=== PATIENT | female | born 1950 | race Caucasian/White ===

== ENCOUNTER 2021-10-15 15:16 | Emergency (ER) | payer OTHER ==
[~2021-10-15] VITALS: Ht 167.6 cm; Wt 92.5 kg
[2021-10-15 15:16] VITALS: BP_SYST 141
--- NOTE | 2021-10-15 15:20 | NUR ---
Patient triaged and placed in waiting room. VSS and patient appears in no acute distress at this time. Accompanied by DAUGHTER, awaiting available bed, and MD notified of need for MSE.
--- NOTE | 2021-10-15 15:25 | NUR ---
DR DIGGS OUT TO TRIAGE ROOM FOR EVALUATION
[2021-10-15 16:57] LABS: BASOPHILS % (AUTO) 0.6 % (0.0-2.0); EOSINOPHILS # (AUTO) 0.1 K/uL (0.0-0.4); HEMATOCRIT 41.1 % (36-48); HEMOGLOBIN 14.1 g/dL (12.0-16.0); LYMPHOCYTES # (AUTO) 1.7 K/uL (1.0-5.5); LYMPHOCYTES % (AUTO) 32.5 % (20.5-51.5); MEAN CORPUSCULAR HEMOGLOBIN 33 pg (27-31); MEAN CORPUSCULAR HGB CONC 34 % (32-36); MEAN CORPUSCULAR VOLUME 96 fL (79.0-98.0); MONOCYTES # (AUTO) 0.7 K/uL (0.0-1.0); MONOCYTES % (AUTO) 13.2 % (1.7-9.3); NEUTROPHILS # (AUTO) 2.7 K/uL (1.8-7.7); NEUTROPHILS % (AUTO) 51.7 % (40.0-70.0); PLATELET COUNT (AUTO) 175 K/uL (130-430); RED BLOOD CELL COUNT(AUTO) 4.28 MIL/uL (4.2-6.2); RED CELL DISTRIBUTION WIDTH 14.8 % (9.0-15.0); WHITE BLOOD COUNT (AUTO) 5.3 K/uL (4.8-10.8)
--- NOTE | 2021-10-15 17:05 | NUR ---
PT OUT IN WAITING ROOM WITH DAUGHTER. NO EPISODES OF TACHYCARDIA OR CHEST PRESSURE. AWAITING TEST RESULTS
[2021-10-15 17:56] LABS: ANION GAP 10 (5-15); CALCIUM 9.8 mg/dL (8.4-11.0); CHLORIDE 98 mmol/L (98-107); GLUCOSE 84 mg/dL (70-99); POTASSIUM 4.2 mmol/L (3.5-5.1); SODIUM SERUM 135 mmol/L (136-145); UREA NITROGEN, BLOOD 25 mg/dL (8-21)
[2021-10-15 18:04] LABS: ALANINE AMINOTRANSFERASE 57 U/L (12-78); ALBUMIN 3.9 g/dL (3.4-4.8); ASPARTATE AMINOTRANSFERASE 37 U/L (10-37); TOTAL BILIRUBIN 0.4 mg/dL (0.0-1.0)
[2021-10-15 18:13] LABS: FREE T4 (FREE THYROXINE) 0.9 ng/dl (0.8-1.5)
--- NOTE | 2021-10-15 18:27 | NUR ---
DR DIGGS SPOKE WITH PT. LAB NOTIFIED TO DRAW SECOND TROPONIN
--- NOTE | 2021-10-15 18:46 | NUR ---
PT HAD BLOOD DRAWN AND LEFT WITHOUT SIGNING DISCHARGE PAPERWORK. PT WILL BE CALLED IF TROPONIN IS ELEVATED PER DR DIGGS
== END 2021-10-15 18:46 | disposition home or self-care (01) ==
LOC: SED 15:16
DX: R00.2 Palpitations (principal); Z79.899 Other long term (current) drug therapy
CPT/HCPCS: 36415; 71045; 80053; 84439; 84443; 84484; 85025; 93005; 99285

== ENCOUNTER 2022-01-08 12:33 | Emergency (ER) | payer OTHER ==
[~2022-01-08] VITALS: Ht 165.1 cm; Wt 95.3 kg
[2022-01-08 12:45] VITALS: BP_SYST 123
--- NOTE | 2022-01-08 13:00 | NUR ---
Patient triaged and placed in waiting room. VSS and patient appears in no acute distress at this time. Accompanied by self, awaiting available bed, and MD notified of need for MSE.
--- NOTE | 2022-01-08 14:30 | NUR ---
Patient left without being seen.
== END 2022-01-08 14:30 | disposition left against medical advice (07) ==
LOC: SED 12:33
DX: R21 Rash and other nonspecific skin eruption (principal); Z53.21 Procedure and treatment not carried out due to patient leaving prior to being seen by health care provider